=== PATIENT | female | born 1985 | race Hispanic/Latino ===

== ENCOUNTER 2017-01-17 11:29 | Inpatient (IN) | payer OTHER ==
[~2017-01-17] VITALS: Ht 157.5 cm; Wt 86.2 kg
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
--- NOTE | 2017-01-17 11:45 | NUR ---
PT ARRIVED ON PEER. COPIED MADE AND PLACED IN PT'S CHART. PEER PLACED IN PEC/PEER BOX.
--- NOTE | 2017-01-17 11:47 | NUR ---
PT TO ROOM12 BIBA FOR SI ATTEMPT. PT TOOK 18 TABS OF LEXAPRO 10MG AND SENT TEXT TO HER FATHER AND SISTERS ABOUT 1HR RECOVERY ROOM RN. PT WAS FOUND IN BED UNRESPONSIVE BUT WOKE UP WITHOUT ANY INTERVENTIONS. PT ARRIVED AAOx2, ADMITS TO TAKING PILLS IN ORDER TO HURT HERSELF, DENIES ETOH, DENIES ILLICIT DRAG USE. NO ACUTE DISTRESS NOTED. VSS. PT DENIES ANY PAIN, C/O DIZZINESS. HX OF DEPRESSION,ANXIETY. TEREZA HESS AT BEDSIDE FOR PT EVAL.
--- NOTE | 2017-01-17 11:50 | NUR ---
NS 1,000ML INFUSING ON ARRIVAL, IV LH G22 PLACED BY HEALTH INSURANCE SPECIALIST. BG 96 BY HEALTH INSURANCE SPECIALIST.
--- NOTE | 2017-01-17 11:57 | NUR ---
LABS DRAWN/SENT (SST, LAVENDAR, BLUE TOP TUBES)
[2017-01-17 12:04] LABS: ABSOLUTE BASOPHIL COUNT 0 /CUMM (0.0-0.2); ABSOLUTE EOSINOPHIL COUNT 0.1 /CUMM (0.0-0.7); ABSOLUTE GRANULOCYTE CT 5.7 /CUMM (1.4-6.5); ABSOLUTE LYMPH COUNT 1.5 /CUMM (1.2-3.4); ABSOLUTE MONOCYTE COUNT 0.4 /CUMM (0.10-0.60); BASOPHIL % 0.3 % (0.0-2.0); EOSINOPHIL % 1.9 % (0-5); GRANULOCYTE % 73.7 % (42.2-75.2); HEMATOCRIT 37.2 % (37-47); MEAN CORPUSCULAR HGB 29.3 PG (27.0-31.0); MEAN CORPUSCULAR HGB CONC 33.4 G/DL (33.0-37.0); MEAN CORPUSCULAR VOLUME 87.7 FL (81.0-99.0); MEAN PLATELET VOLUME 7.9 FL (7.4-10.4); PLATELET COUNT 300 /CUMM (130-400); RED BLOOD CELL CT 4.24 /CUMM (4.20-5.40); WHITE BLOOD CELL COUNT 7.7 /CUMM (4.8-10.8)
--- NOTE | 2017-01-17 12:39 | NUR ---
PT RESTING ON STRETCHER, STILL C/O DIZZINESS AND HEADACHE, NO ACUTE DISTRESS, VSS. FAMILY AND SITTER AT BEDSIDE. WCTM.
--- NOTE | 2017-01-17 12:51 | NUR ---
PT BECAME NASEOUS, MEDICATED WITH ZOFRAN PER ORDER.
--- NOTE | 2017-01-17 13:14 | NUR ---
PT REEVALUATED BY TEREZA HESS. 2ND LITER OF NS INFUSING PER EMAR. EKG IN PROGRESS.
--- NOTE | 2017-01-17 13:51 | NUR ---
PT SLEEPING ON STRETCHER, AWAKEN FOR URINE SAMPLE, UNABLE TO PROVIDE ONE AT THIS TIME, WILL TRY LATER, NS INFUSING, VSS, NO ACUTE DISTRESS NOTED. SITTER AND AT BEDSIDE.
--- NOTE | 2017-01-17 14:42 | NUR ---
URINE TRIO COLLECTED AND SENT TO LAB.
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
--- NOTE | 2017-01-17 15:40 | NUR ---
TYL BLOOD WORK SENT TO LAB WELL EXTRA TUBES GOLD GAMA LAV PINK BLUE TUBES COLLECTED AND SENT
--- NOTE | 2017-01-17 16:13 | NUR ---
PT ASLEEP AT THIS TIME. AT BEDSIDE WELL SITTER. PT ATE DINNER AND IS NOW RESTING.
[2017-01-17] MEDS ORDERED: LEXAPRO10 M1 PO (16:48)
[2017-01-17] MEDS ORDERED: NEXIUM40 M1 PO (16:48)
[2017-01-17] MEDS ORDERED: MULTI-DAY VITA1 EACH PO (16:49)
--- NOTE | 2017-01-17 17:12 | NUR ---
CRISIS AT BEDSIDE
--- NOTE | 2017-01-17 17:40 | NUR ---
CRISIS AT BEDSIDE TO DISCUSS D/C PLANS WITH PT
--- NOTE | 2017-01-17 17:45 | NUR ---
PT REQUESTING TO HAVE ?ABCESS CHECKED BY PROVIDER. RED, ABCESS NOTED TO LEFT BUTT CHEEK. PER PROVIDER, NOT READY TO BE DRAINED. PER PT, HISTORY OF MRSA IN THE PAST FROM ABCESSES. ISOLATION CART PLACED OUTSIDE ROOM.
--- NOTE | 2017-01-17 18:35 | NUR ---
PT MEDICATED WITH CLEOCIN 300MG PO
--- NOTE | 2017-01-17 19:03 | NUR ---
PT MOVED FROM ROOM 12 TO ROOM 14. PT CHANGED INTO BLUE SCRUBS.
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
--- NOTE | 2017-01-17 20:00 | NUR ---
PT APPEARS TO BE RESTING COMFORTABLY. RESP UNLABORED. SITTER IN HALLWAY
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
--- NOTE | 2017-01-17 22:21 | SOCIAL WORKER PROG NOTE PSYCH ---
Social Work Progress Note Progress Note Patient was approved for 7 days with next review due on 01-23-17 Auth # is [id number] Ct B [id number] [phone]
--- NOTE | 2017-01-17 22:26 | NUR ---
PT APPEARS COMFORTBALE. RESP UNLABORED. NO APPARENT DISTRESS. SITTER AT BEDSIDE
[2017-01-17 22:52] VITALS: BP 151/87
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
--- NOTE | 2017-01-18 03:59 | Admission Certification ---
Admission Certification Certification Statement - As attending physician, I certify that at the time of - admission, based on clinical presentation, severity of - symptoms, need for further diagnostic testing and - therapeutic interventions, and risk of adverse outcomes - without in-hospital treatment, in my clinical assessment, - this patient requires an acute hospital stay for a minimum - of two nights or longer. I have also considered psychsocial - factors such as support system, advanced age, financial - issues, cognitive issues, and failed out-patient treatments, - past re-admission history, safety of patient, and lack of - compliance as applicable. Specific rationale supporting this admission is: Intentional drug overdose, depression.
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
[2017-01-18 07:49] VITALS: BP 128/77
[2017-01-18 12:06] VITALS: BP 134/64
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
[2017-01-18 15:53] VITALS: BP 123/66
[2017-01-18 19:53] VITALS: BP 129/74
--- NOTE | 2017-01-18 21:14 | NUR ---
PT IS CONSTRICTED IN AFFECT AND APPEARS DEPRESSED. PT WAS LAUGHING WHEN AND SON WERE VISITING BUT IMMEDIATELY AFTER THEY LEFT SHE LOOKED SULLEN AND WAS WITHDRAWN. PT WAS VISIBLE WITHIN THE MILIEU ONLY WHEN WITH VISITORS AND RETREATED TO HER ROOM AFTER THEY LEFT WHERE SHE HAS BEEN FOR MOST OF THE EVENING SHIFT. MINIMAL INTERACTION WITH PEERS/STAFF. PT IS OOB FOR VS & MEDS. VS ARE STABLE AND PT DENIES ANY SI/HI TO THIS MHW.
[2017-01-19] MEDS ORDERED: LEXAPRO10 M1 PO (00:38)
--- NOTE | 2017-01-19 05:59 | NUR ---
PATIENT SLEPT ALL NIGHT.
[2017-01-19 08:00] VITALS: BP 131/75
[2017-01-19 12:20] VITALS: BP 127/71
--- NOTE | 2017-01-19 14:16 | NUR ---
DEPRESSION "3" ON SCALE 1-10. ANXIETY "1" ON SCALE OF 1-10. PT WITH MOSTLY CONSTRICTED AFFECT, BUT ABLE TO SMILE APPROPRIATELY. DENIES SI/THOUGHTS OF SELF HARM. ADMITTED TO AUDITORY HASLLUCINATIONS OF HER MOTHER'S VOICE CALLING HER DEROGATORY NAMES. PT VISIBLE ON UNIT. BEHAVIOR CALM AND COOPERATIVE. PT STATUS REPORTED TO [facility].
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
[2017-01-19 15:55] VITALS: BP 112/70
--- NOTE | 2017-01-19 16:54 | IP INCIDENTAL NOTE PSYCH ---
Incidental Note Notation: Attempted calling [facility] (#[phone]) for collateral from outpatient psychiatrist Dr. Griffin. Call unsuccessful, will attempt to contact again tomorrow.
[2017-01-19 19:48] VITALS: BP 131/84
[2017-01-20 07:58] VITALS: BP 116/76
--- NOTE | 2017-01-20 08:23 | IP INCIDENTAL NOTE PSYCH ---
Incidental Note Notation: This database report writer called [facility] (#[phone]) this morning at 8:20AM requesting collateral from Dr. Griffin. Per [facility] office staff, Dr. Griffin will be out of office until 01/28/17. This database report writer requested [facility] office staff have the patient's [facility] therapist Arianna Oconnell LCSW, return phone call to obtain a clinical history on the patient.
--- NOTE | 2017-01-20 11:38 | NUR ---
PTS GOAL WAS TO PREPARE FOR HER FAMILY MEETING AT 2PM TODAY.SHE STATES SHE FEELS READY TO GO HOME AND ISLOOKING FORWARD TO GETTING BACK TO HER RESPONSIBILITIES/ SHE DENIES ANY SUICIDAL THOUGHTS AND IS COMPLIANT WITH HER MED REGIME
[2017-01-20 12:17] VITALS: BP 123/65
--- NOTE | 2017-01-20 13:12 | CP SOUTH PROGRESS NOTE PSYCH ---
Psych (Inpt) Progress Note Progress Note Include the following elements, when applicable: Involvement in the active treatment of the patient with behavioral observations of the patient and the patient's response to the treatment. Review of the ongoing treatment process in the context of the treatment plan. Indication of how multi-disciplinary staff members are carrying out the treatment plan. Plans for future interventions and recommendations for revision of the treatment plan. Liaison with other physicians/providers. Progress Note: [I discussed this patient's progress to date, current mental status, treatment process in the context of the treatment plan, and discharge planning with staff/ team in the daily morning inpatient team meeting. I also met with the patient myself in individual session.] SUBJECTIVE: "I'm doing ok, I miss my kids and ." OBJECTIVE: Current Medications Sig/Navdeep Start time Last Medication Dose Route Stop Time Status Admin Al Hydroxide/Mg 30 ML Q4-6 PRN PRN 01/17 1815 AC Hydroxide PO Clindamycin 300 MG Q6 01/17 2359 AC 01/20 PO 01/24 1700 1117 Hydroxyzine HCl 50 MG Q6-PRN PRN 01/17 1815 AC 01/17 PO 2337 Ibuprofen 600 MG Q4 HRS NEEDED PRN 01/17 1815 AC PO Multivitamins 1 TAB DAILY 01/18 1000 AC 01/20 Therapeutic PO 1117 Olanzapine 5 MG 2100 01/19 2100 AC 01/19 PO 2002 Omeprazole 40 MG DAILY AC 01/18 0700 AC 01/20 PO 0706 Trazodone HCl 50 MG AT BEDTIME NEED.. 01/17 1815 DC PO Vital Signs Date Time Temp Pulse Resp B/P Pulse O2 O2 Flow FiO2 Ox Delivery Rate 01/20 1217 59 123/65 01/20 0758 97.6 57 116/76 01/19 1948 96.5 66 131/84 01/19 1555 59 112/70 Laboratory Tests 01/20/17 0650: AST 46 H, ALT 72 H ASSESSMENT: Chart, progress notes, VS, labs and medication list were reviewed. Repeat LFTs resulted elevated (se above for results). Patient agreeable to hepatitis panel. Met with patient today. She presented alert and oriented to person, place, time and situation. Speech was soft-spoken, normal in rate and tone. Behavior was guarded. Eye contact was better. She reported sleep and appetite were good. She reported having positive visits with her and son last evening. She reported tolerating Zyprexa 5mg well overnight and denied untoward medication effects. She reported a decrease in intrusive thoughts and in AH of her mother's voice. There was no evidence of paranoia today, or delusions. She denied visual hallucinations. Patient reported depression of 5/10 (10 being the worst) and anxiety of 2/10 (10 being the worst). She denied passive and active suicidal ideation, plans and intent. She reported protective factors of her son, daughter , and . She denied homicidal ideation. Thought process was linear. Thought content was appropriate. Cognition was grossly intact. PLAN: 1. Continue monitoring the patient on unit for safety, suicidal ideation, mood and AH. 2. Add-on Hepatitis panel ordered. 3. Continue Zyprexa 5mg QHS for mood stabilization and AH. 4. Family meeting with patient's at 2PM today. 5. Dispo planning per primary team.
[2017-01-20 16:14] VITALS: BP 131/68
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
[2017-01-20 19:55] VITALS: BP 128/76
--- NOTE | 2017-01-20 21:58 | NUR ---
Pt is in bed most of the shift mood is stable, compliant with the staff vital signs are stable. No complaints offered. Will continue to monitor the pt overnight.
[2017-01-21 08:00] VITALS: BP 122/72
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
--- NOTE | 2017-01-21 11:22 | SOCIAL WORKER PROG NOTE PSYCH ---
Social Work Progress Note Progress Note Completed Transfer and faxed to [facility].
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
[2017-01-21 12:20] VITALS: BP 121/58
--- NOTE | 2017-01-21 12:51 | SOCIAL WORKER PROG NOTE PSYCH ---
Social Work Progress Note Progress Note Patient has displayed positive affect today, and has been upbeat, although she remains anxious to go home. While she appears as though she is close to dischage , patient did have a very serious overdose, and Dr Dejesus felt strongly that patient should not be dischsrged before she was thoroughly evaluated, and medication evaluated as well. Patient is planning on follow-up at [facility], and due to her work schedule, patient would be best served by attending the 4 p.m. group. Patient is mental health, with no substance abuse component. She is socializing on unit and participating in groups.
[2017-01-21 16:14] VITALS: BP 129/65
[2017-01-21 19:33] VITALS: BP 127/72
--- NOTE | 2017-01-21 21:13 | NUR ---
PT IS CALM, COOPERATIVE WITH STAFF AND PEERS, AND COMPLIANT WITH UNIT RULES. PT IS IN [place] OFTEN, THOUGH DOES TEND TO STAY BY SELF AT TIMES, ACTING SLIGHTLY ISOLATIVE AND WIRHDRAWN, THOUGH DOES INTERACT WELL WITH OTHERS WHEN DIRECTLY ENGAGED. PT MOOD STABLE, AFFECT IS EUTHYMIC TO FULL RANGE, COMMUNICATON IS NORMAL, AND APPETITE IS NORMAL. PT DENIES SI AT THIS TIME.
[2017-01-22 07:42] VITALS: BP 128/73
--- NOTE | 2017-01-22 10:19 | SOCIAL WORKER PROG NOTE PSYCH ---
Social Work Progress Note Progress Note Pt has an intake appointment with [facility] on Thursday01/27/17 at 12:45p.
[2017-01-22 12:14] VITALS: BP 124/68
--- NOTE | 2017-01-22 13:41 | CP SOUTH PROGRESS NOTE PSYCH ---
Psych (Inpt) Progress Note Progress Note Include the following elements, when applicable: Involvement in the active treatment of the patient with behavioral observations of the patient and the patient's response to the treatment. Review of the ongoing treatment process in the context of the treatment plan. Indication of how multi-disciplinary staff members are carrying out the treatment plan. Plans for future interventions and recommendations for revision of the treatment plan. Liaison with other physicians/providers. Progress Note: [I discussed this patient's progress to date, current mental status, treatment process in the context of the treatment plan, and discharge planning with staff/ team in the daily morning inpatient team meeting. I also met with the patient myself in individual session.] SUBJECTIVE: "I miss home." OBJECTIVE: Current Medications Sig/Navdeep Start time Last Medication Dose Route Stop Time Status Admin Al Hydroxide/Mg 30 ML Q4-6 PRN PRN 01/17 181 AC Hydroxide PO Clindamycin 300 MG Q6 01/17 2359 AC 01/22 PO 01/24 1700 1123 Hydroxyzine HCl 50 MG Q6-PRN PRN 01/17 1815 AC 01/17 PO 2337 Ibuprofen 600 MG Q4 HRS NEEDED PRN 01/17 1815 AC PO Multivitamins 1 TAB DAILY 01/18 1000 AC 01/22 Therapeutic PO 1123 Olanzapine 5 MG 2000 01/22 2000 AC PO Olanzapine 5 MG 2100 01/19 2100 DC 01/21 PO 2044 Omeprazole 40 MG DAILY AC 01/18 0700 AC 01/22 PO 0605 Vital Signs Date Time Temp Pulse Resp B/P Pulse O2 O2 Flow FiO2 Ox Delivery Rate 01/22 1214 63 124/68 01/22 0742 96.9 59 128/73 01/21 1933 96.5 62 127/72 01/21 1614 64 129/65 ASSESSMENT: Chart, progress notes, VS, labs and medication list were reviewed. Met with patient today. She presented A&Ox3. Affect was full-range. Mood was "good." Eye contact was appropriate. Speech was normal in rate, tone, and volume. She reported having good visits last evening with her son and and looks forward to discharge so she can be with them. She reported anxiety of 1/10 (10 being the worst) and anxiety of 1/10 (10 being the worst). She denied feeling hopeless, helpless, worthless and guilty. She denied passive and active suicidal ideation, plans and intent. She denied homicidal ideation. She reported an absence of intrusive and racing thoughts. There was no evidence of paranoia or alicia delusions. She reported her sleep and appetite were good. Thought process was linear and goal-directed. She was future oriented to return to work and family routine, in addition to IOP. Thought content was appropriate. Cognition was grossly intact. Patient reported tolerating medications well overall. Reports feeling mildly tired in the morning likely from HS Zyprexa. Patient was agreeable to rescheduling HS dose to 8PM. PLAN: 1. Continue monitoring patient on unit for safety and mood. 2. Continue current medications, will readjust Zyprexa 5mg to 8PM to counter daytime tiredness. 3. Discharge tomorrow with f/u at [facility].
--- NOTE | 2017-01-22 14:21 | NUR ---
PT IS COMPLIANT AND COOPERATIVE. PT IS OUT IN COMMUNITY INTERACTING WELL WITH STAFF AND PEERS. PT IS ACTIVE IN GROUPS. PT IS LOOKING FORWARD TO DISCHARGE TOMORROW AND FEELS LIKE SHE IS READY. PT MOOD IS STABLE WITH A FULL RANGE AFFECT. PT DENIES SI THOUGHTS
--- NOTE | 2017-01-22 15:12 | SOCIAL WORKER PROG NOTE PSYCH ---
Social Work Progress Note Progress Note Pt given an intake at [facility] on 01/27/17 at 12:45pm. Pt states she is prepared for discharge tomoorw, and denies feeling suicidal, has felt this hopitialization has been helpful. She is struggling with the issues with her 8 year old daughter, and reports she feels safe and that her is emotionally supportive to her, as she is learning to live with anxiety and manage her depression, she states her Mother "thinks its all a joke". Pt educated about the importance of following through with IOP referral. Pt agrees.
[2017-01-22 15:53] VITALS: BP 133/73
[2017-01-22 20:05] VITALS: BP 121/72
--- NOTE | 2017-01-22 22:59 | NUR ---
PT IS ISOLATIVE AND WITHDRAWN, REMAINING IN BED FOR MAJORITY OF EVENING. MINIMAL INTERACTION WITH PEERS AND STAFF. REFUSED AA AND WRAP UP MEETING. NO COMPLAINTS OR SI REPORTED. PT HAS A CONSTRICTED MOOD AND FLAT AFFECT.
--- NOTE | 2017-01-23 06:03 | NUR ---
PT APPEARED TO SLEEP.
[2017-01-23 07:19] VITALS: BP 125/74
--- NOTE | 2017-01-23 07:49 | CP SOUTH PROGRESS NOTE PSYCH ---
Psych (Inpt) Progress Note Progress Note Include the following elements, when applicable: Involvement in the active treatment of the patient with behavioral observations of the patient and the patient's response to the treatment. Review of the ongoing treatment process in the context of the treatment plan. Indication of how multi-disciplinary staff members are carrying out the treatment plan. Plans for future interventions and recommendations for revision of the treatment plan. Liaison with other physicians/providers. Progress Note: [I discussed this patient's progress to date, current mental status, treatment process in the context of the treatment plan, and discharge planning with staff/ team in the daily morning inpatient team meeting. I also met with the patient myself in individual session.] SUBJECTIVE: "I'm good, taking the medication earlier helpled. I don't feel tired this morning." OBJECTIVE: Current Medications Sig/Navdeep Start time Last Medication Dose Route Stop Time Status Admin Al Hydroxide/Mg 30 ML Q4-6 PRN PRN 01/17 181 AC Hydroxide PO Clindamycin 300 MG Q6 01/17 2359 AC 01/23 PO 01/24 1700 0710 Hydroxyzine HCl 50 MG .STK-MED ONE 01/22 1739 DC PO 01/22 1740 Hydroxyzine HCl 50 MG Q6-PRN PRN 01/17 1815 AC 01/22 PO 1745 Ibuprofen 600 MG Q4 HRS NEEDED PRN 01/17 1815 AC PO Multivitamins 1 TAB DAILY 01/18 1000 AC 01/22 Therapeutic PO 1123 Olanzapine 5 MG 2000 01/22 2000 AC 01/22 PO 2026 Olanzapine 5 MG 2100 01/19 2100 DC 01/21 PO 2044 Omeprazole 40 MG DAILY AC 01/18 0700 AC 01/23 PO 0728 Vital Signs Date Time Temp Pulse Resp B/P Pulse O2 O2 Flow FiO2 Ox Delivery Rate 01/23 719 97.2 62 125/74 01/22 2005 98.2 66 121/72 01/22 1553 70 133/73 01/22 1214 63 124/68 ASSESSMENT: Chart, progress notes, VS, labs and medication list were reviewed. Met with the patient today on the date of discharge. She presented alert and oriented to person, place, time and situation. Speech was soft-spoken, normal in rate and tone. Eye contact was appropriate. Affect was full range. Mood was "good." She reported feeling excited to return home. She had no complaints. She reported anxiety of 1/10 (10 being the worst) and depression of 1/10 (10 being the worst). She denied feeling hopeless, helpless, worthless, and guilty. She was future oriented to return to work, and resume time with her family and follow-up with [facility] for continued psychiatric treatment. She denied active and passive suicidal ideation, plans and intent. She denied homicidal ideation. She stated and also believed she will not harm her self or others. She identified protective factors of "my ," "my son," "my daughter," and "my job." She denied auditory and visual hallucinations. She denied intrusive and racing thoughts. She reported utilizing coping skills such as cleaning, doing sudoku puzzles, watching television, talking to friend and , and taking naps during hospitalization and was motivated to continue using coping skills outside of the hospital. Reported her sleep and appetite were good. Thought process was organized and goal directed. Thought content was appropriate. There was no evidence of paranoia or alicia delusions. Cognition was grossly intact. Since rescheduling Zyprexa 5mg at 8PM, patient denied further morning tiredness. Discussed that post-discharge from hospital the patient can reschedule Zyprexa 5mg to every morning which is when she goes to bed, as she works 3rd shift. Patient verbalized understanding of instruction. She was also informed that her Clindamycin course will be completed tomorrow, and will be provided with an adequate amount of tablets on discharge so she can complete antibiotic course for cellulitis. The patient reported tolerating all medications well and denied untoward medication effects. She reported feeling safe and ready for discharge. PLAN: 1. Discharge today into the care of her . 2. F/u at [facility] today, 01/23/17 at 12:45PM. 3. All discharge prescriptions were called into [facility] in [place], [place] (#[phone]). 4. Follow-up with PCP regarding elevated LFTs, cellulitis of left buttock with abscess and recurrent MRSA infections. Patient verbalized understanding of instruction. 5. In the event of an emergency, call 911/go to nearest emergency department. Patient verbalized understanding of instruction.
--- NOTE | 2017-01-23 08:09 | DISCHARGE SUMMARY REPORT-PSYCH ---
Visit Information Visit Dates/Diagnosis' Admission Date: 01/17/17 Discharge Date: 01/23/17 Reason for Admission: Status post overdose on Lexapro and Percocet with suicidal intent. Psy Discharge Primary Diag: MDD, single episode, severe with suicide attempt Psy Discharge Secondary Diag: R/O MDD, single episode, severe with psychotic features; R/O Unspecified Bipolar Disorder; R/O PTSD; GERD; Cellulitis of left buttock with abscess ; Hx recurrent MRSA infections. Hospital Course Significant Lab Findings: Lab ALT 72 U/L H 01/17/17 1149 ALT 72 U/L H 01/20/17 0650 AST 37 U/L H 01/17/17 1149 AST 46 U/L H 01/20/17 0650 Total Beta HCG NEGATIVE 01/17/17 1149 Urine Opiates Screen > 4000.00 NG/ML H 01/17/17 1440 01/19/17 EKG: Sinus rhythm, with rate of 59. DE: 132; QRSD: 100; QT: 440; QTc: 436; P: 45; QRS: 52; T: 40. Normal EKG confirmed by sub acute care nurse Dr. Boyd Vizcaino. Course Complications: None. Consultations: The patient was seen for admission history and physical by solar sales energy advisor Dr. Henrry Burns. Please see MD note for additional information. Patient was started on Clindamycin 300mg po four times daily for cellulitis and abscess to left buttock by Dr. Burns and was provided with an adequate supply of Clindamycin on discharge to complete antibiotic course. Allergies: Coded Allergies: Sulfa (Sulfonamide Antibiotics) (HIVES, DYSPNEA 01/17/17) Hospital Course/TX Response: The patient was monitored on the unit for safety, suicidal ideation, mood, and auditory hallucinations. She participated in multimodal treatments on the unit. Outpatient Lexapro 10mg daily was discontinued, given recent overdose on this medication, and the patient's report of becoming activated on this medication. Zyprexa 5mg at bedtime was started for mood stabilization and auditory hallucinations. The patient tolerated medications well and denied untoward medication effects. During the hospital course, the patient's mood and affect improved. Suicidal ideation and auditory hallucinations remitted. A family meeting was held with the patient, her , Merrick George LCSW, and this editorial writer. The patient's treatment progress, medication regimen, level of safety and discharge planning were reviewed. The patient and her were in favor of discharge plan to [facility] for continued psychiatric symptom and medication management. On the date of discharge, 01/23/17, the patient presented alert and oriented to person, place, time and situation. Speech was soft-spoken, normal in rate and tone. Eye contact was appropriate. Affect was full range. Mood was "good." She reported feeling excited to return home. She had no complaints. She reported anxiety of 1/10 (10 being the worst) and depression of 1/10 (10 being the worst) . She denied feeling hopeless, helpless, worthless, and guilty. She was future oriented to return to work, and resume time with her family and follow-up with [facility] for continued psychiatric treatment. She denied active and passive suicidal ideation, plans and intent. She denied homicidal ideation. She stated and also believed she will not harm her self or others. She identified protective factors of "my ," "my son," "my daughter," and "my job." She denied auditory and visual hallucinations. She denied intrusive and racing thoughts. She reported utilizing coping skills such as cleaning, doing sudoku puzzles, watching television, talking to friend and , and taking naps during hospitalization and was motivated to continue using coping skills outside of the hospital. Reported her sleep and appetite were good. Thought process was organized and goal directed. Thought content was appropriate. There was no evidence of paranoia or alicia delusions. Cognition was grossly intact. Since rescheduling Zyprexa 5mg at 8PM, patient denied further morning tiredness. Discussed that post-discharge from hospital the patient can reschedule Zyprexa 5mg to every morning which is when she goes to bed, as she works 3rd shift. Patient verbalized understanding of instruction. She was also informed that her Clindamycin course will be completed tomorrow, and was provided with an adequate amount of tablets on discharge so she can complete antibiotic course for cellulitis. The patient reported tolerating all medications well and denied untoward medication effects. She reported feeling safe and ready for discharge. Discharge HBIPS - Tobacco Use Treatment Offered Post DC Medications Offered: NA-No Tob Use >30 days Post DC Tobacco Treatment Plan: NA-No Tobacco use >30days - EtOH/Drug Use D/O Treatment Offered Post DC Medications Offered: NA-No EtOH/Drug Use D/O Post DC EtOH/SubAbuse [place] Plan: NA-No EtOH/Drug Use D/O Metabolic Screening - Screen if on a Neuroleptic Medication - Metabolic screening should include: - Blood Pressure, BMI, Glucose or Hgb A1c, & a - Lipid profile from within the past 365 days. Metabolic Screening () Not Applicable, patient not on a neuroleptic. OR (X]) Patient on a neuroleptic(s) . Enter below results for Glucose or Hemoglobin A1C, and lipid panel if obtained during the last 365 days. BMI: 34.700 Blood Pressure: 122/66 Laboratory Results (If applicable): Lab Cholesterol 191 MG/DL 01/18/17 0805 Cholesterol/HDL Ratio 4 % 01/18/17 08 HDL Cholesterol 54 mg/dL 01/18/17 08 Hemoglobin A1c 5.1 01/18/17 08 LDL Cholesterol, Calc 122 mg/dL 01/18/17 0805 Triglycerides 78 mg/dL 01/18/17 0805 Discharge Instructions General Discharge Information Discharge Medications: Discharge Medications- (Dose, route, freq, indication): HOME MEDICATION LIST START taking these NEW Home Medications: Clindamycin HCl Dose: ORAL, 4 TIMES A DAY for Qty: 6 Called in to (Cleocin HCl) 300 MG 1 Capsule cellulitis Refills: 0 Pharm 1 CAPSULE Take 1 capsule by mouth four times daily. Last Taken:01/23/17 Time:1122 Olanzapine Dose: ORAL, 2000 for clear Qty: 14 Called in to (Olanzapine) 5 MG 5 Milligram thoughts/mood stability Refills: 0 Pharm 1 TABLET Take 1 tab by mouth at bedtime. Last Taken:01/22/17 Time:2030 CONTINUE taking these Home Medications: Esomeprazole (Nexium) 40 Dose: ORAL, DAILY for GI MG CAPSULE.DR 1 Capsule Last Taken:01/23/17 Time:0730 Multivitamin (Multi-Day Dose: ORAL, DAILY for Vitamins) 1 EACH TABLET 1 Tablet SUPPLEMENT Last Taken:01/23/17 Time:0900 Patient reported having adequate supplies of Nexium and multivitamins at home. She was advised to take medications as indicated above, and verbalized understanding. STOP taking these DISCONTINUED Home Medications: Escitalopram Oxalate (Lexapro) Dose: ORAL, DAILY for MENTAL HEALTH 10 MG TABLET 1 Tablet Reason Stopped: Changed to different med Escitalopram Oxalate (Lexapro) Dose: ORAL, DAILY for ANXIETY 10 MG TABLET 10 Milligram Reason Stopped: Per Doctor Decision 1: [facility] [id number], [address] [facility], [place] [id number] Your Preferred Pharmacy [facility] [id number] [address], [place] [id number] Multiple Neuroleptics: (X]) Not Applicable OR Document below three failed attempts at monotherapy, or a plan to taper to monotherapy, or augmentation of Clozapine. () Patient's Diet: Regular. Patient's Activity: No restrictions. DC Disposition: To return to home and family. Recommendations: The patient was advised to please take medications. She was advised to follow-up with [facility] intake. She was advised to follow-up with her PCP for elevated LFTs and cellulitis and abscess to left buttock. She was advised that in the event of an emergency or if psychiatric symptoms recur to call 911/go to nearest emergency department. Patient verbalized understanding of all instructions. Referred To: [address] [address] ([phone] IOP intake appointment scheduled on 01/23/17 at 12:45PM. Copies To: [facility]
--- NOTE | 2017-01-23 11:17 | NUR ---
PT IS DISCHARGED TODAY TO [facility]. SHE AGREES TO FOLLOW UP WITH [facility] AND HAS HER INTAKE TODAY. SHE REPORTS AND DEMONSTRATES IMPROVEMENT IN HER MOOD AND ABILITY TO FUNCTION. SHE DENIES ANY THOUGHTS OF SUICIDE OR SELF HARM. SHE VERBALIZES A GOOD UNDERSTANDING OF HER MED REGIME AND TREATMENT PLAN. PT IS GIVEN EDUCATION R/T MANAGING HER DEPRESSION AND ON SUICIDE PREVENTION
[2017-01-23] MEDS ORDERED: CLEOCIN HCL300 M1 PO (11:25)
[2017-01-23] MEDS ORDERED: OLANZAPINE5 M2 PO (11:27)
[2017-01-23 12:11] VITALS: BP 122/66
[2017-01-23 12:31] VITALS: BP 122/66
== END 2017-01-23 12:43 | DRG 751 ==
LOC: ERH 11:29 → ENPENDDIS 18:42 → CP SOUTH 18:42 → ERHI 18:42 → CP SOUTH 22:27
PROVIDERS: Physician Assistant Medical; Psychiatry & Neurology Psychiatry; ADMIT Psychiatry & Neurology Psychiatry
DX: F32.2 Major depressive disorder, single episode, severe without psychotic features (principal); T40.602A Poisoning by unspecified narcotics, intentional self-harm, initial encounter; K21.9 Gastro-esophageal reflux disease without esophagitis; L03.317 Cellulitis of buttock; L02.31 Cutaneous abscess of buttock; Z86.14 Personal history of Methicillin resistant Staphylococcus aureus infection
CPT/HCPCS: 36415; 80307; 90832; 93005; 93010; 96374; G0480; J2405